=== PATIENT | male | born 2000 | race Caucasian/White ===

== ENCOUNTER 2022-04-05 01:56 | Emergency (ER) | payer SELFPAY ==
[2022-04-05] MEDS: Sodium Chloride 0.9% 10 ML Syringe FLUSH PRN (02:27)
[2022-04-05] MEDS: Sodium Chloride 0.9% 1,000 ML IV ONE (02:45)
[2022-04-05 02:59] LABS: ANION GAP 13.4 mmol/L (5-15); CHLORIDE,CL 102 mmol/L (98-107); ESTIMATED GFR 124 mL/min (>=60); SODIUM,NA 139 mmol/L (136-145)
[2022-04-05] MEDS: Albuterol/Ipratropium 3.0-0.5 MG/3 ML Neb Soln NEB ONE (03:03)
[2022-04-05 03:29] LABS: RESPIRATORY SYNCYTIAL VIR NAA NEGATIVE (NEGATIVE)
[2022-04-05 03:30] LABS: CORONAVIRUS COVID-19 NAA NEGATIVE (NEGATIVE)
== END 2022-04-05 04:17 | disposition home or self-care (01) ==
LOC: KA.ED 01:56
DX: J45.909 Unspecified asthma, uncomplicated (principal); Z20.822 Contact with and (suspected) exposure to COVID-19
CPT/HCPCS: 0241U; 36415; 71046; 80053; 83605; 85025; 87040; 94640; 96360; 99284; 99285-25; A9270-GY; J3490; J7030; J7620-GY